=== PATIENT | male | born 1965 ===

== ENCOUNTER → 2020-01-05 08:42 | Outpatient (CLI) | payer MEDICARE, OTHER, MEDICAID, SELFPAY ==
--- NOTE | ~2020-01-05 | MR_ITS ---
EXAMINATION: MR cervical spine wo/w con EXAM DATE: 01/05/2020 10:05 INDICATION: Neck pain. Bilateral shoulder pain, symptoms for years. TECHNIQUE: Multi-sequential, multiplanar MR images of the cervical spine were obtained without contra st. Axial T2, axial T2 MERGE sequence. Sagittal T1, T2, T2 fat saturation images also obtained. Axi al T1 weighted sequence. Patient was then injected with 15 mL Multihance intravenous contrast and re imaged. Postcontrast axial and sagittal T1-weighted fat saturation sequences were obtained. There i s no prior study for comparison. FINDINGS: There is cervical fusion at C6-7. There is mild disc disease at C5-6 and C7-T1. The verteb ral bodies are aligned in the AP dimension. The spinal cord signal intensity and intrinsic morphology is normal. Cervicomedullary junction is normal in appearance. There are no suspicious marrow signal abnormalities. Paraspinal soft tissue is unremarkable. There are no areas of abnormal enhancement on the post contrast images. Level by level evaluation: C2-C3: Disc does not extend beyond the endplate margin. Uncovertebral joint arthropathy: Mild left. Facet joint arthropathy: Mild bilateral. Neural foraminal stenosis: No stenosis. Central canal stenosis: No stenosis. C3-C4: Disc does not extend beyond the endplate margin. Uncovertebral joint arthropathy: Mild to moderate bilateral. Facet joint arthropathy: Moderate left, mild to moderate right. Neural foraminal stenosis: Mild right. Central canal stenosis: No stenosis. C4-C5: Disc does not extend beyond the endplate margin. Uncovertebral joint arthropathy: Moderate right, mild to moderate left. Facet joint arthropathy: Moderate bilateral. Neural foraminal stenosis: Mild to moderate right, mild left. Central canal stenosis: No stenosis. C5-C6: There is a minimal diffuse disc bulge. Uncovertebral joint arthropathy: Mild to moderate bilateral. Facet joint arthropathy: Moderate bilateral. Neural foraminal stenosis: Mild right. Central canal stenosis: No stenosis. C6-C7: This level is fused. Uncovertebral joint arthropathy: Mild. Facet joint arthropathy: Mild to moderate. Neural foraminal stenosis: No stenosis. Central canal stenosis: No stenosis. C7-T1: There is a mild diffuse disc bulge. Uncovertebral joint arthropathy: Mild to moderate bilateral. Facet joint arthropathy: Mild to moderate bilateral. Neural foraminal stenosis: No stenosis. Central canal stenosis: Minimal. IMPRESSION: 1. C6-7 cervical fusion. 2. Mild to moderate cervical arthropathy. Reviewed, dictated and finalized at location B.
[2020-01-05 09:23] LABS: Estimated Glomerular Filt Rate > 60
== END ==
PROVIDERS: PCP Anesthesiology Pain Medicine; Visit Provider Nurse Practitioner Family
DX: M54.12 Radiculopathy, cervical region (principal); Z98.1 Arthrodesis status
CPT/HCPCS: 36415; 72156; A9577

== ENCOUNTER 2020-02-19 19:01 | Emergency (ER) | payer OTHER, MEDICAID, SELFPAY ==
--- NOTE | ~2020-02-19 | XR_ITS ---
EXAMINATION: XR chest 2V DATE: 02/19/2020 19:36 INDICATION: Chest pain and hypertension TECHNIQUE: PA and lateral views of the chest are obtained. COMPARISON: None available FINDINGS: The lungs are free of acute opacities. There is no pleural effusion or pneumothorax. The ca rdiomediastinal silhouette is normal. There are changes of fusion procedure in the cervical spine. [place] rgical clips are noted in the left neck. IMPRESSION: 1. No acute cardiopulmonary abnormality. Reviewed, dictated and finalized at location A.
--- NOTE | 2020-02-19 19:09 | ED.RECABL ---
HPI - Recheck/Abnormal Lab/Rx General Chief Complaint: Recheck/Abnormal Lab/Rx Stated Complaint: High BP Time Seen by Provider: 02/19/20 19:09 History of Present Illness HPI narrative: Intermittent chest pain and racing heart rate for the past 10 days. First noticed it after getting a steroid injection in his neck. Since that time he has had the symptoms multiple times. No inciting factor. associated with SOB. Teusday he was supposed tohave another injection, but his blood pressure was too high. He contacted his PCP and they had him restart the HCTZ which he was previously on. He continues to have elevated BP and intermittent smyptoms. Related Data Allergies Allergy/AdvReac Type Severity Reaction Status Date / Time No Known Allergies Allergy Verified 02/19/20 21:45 Review of Systems Review of Systems: All systems reviewed & are unremarkable except as noted in HPI and below Constitutional: Constitutional: Denies fever(s) Cardiovascular: Cardiovascular: Reports chest pain Respiratory: Respiratory: Denies cough and Reports dyspnea Gastrointestinal: Gastrointestinal: Denies abdominal pain and Denies nausea Neurologic: Reports dizziness Psychiatric: Psychiatric: Reports depression Endocrine: Endocrine: Denies polydipsia and Denies polyuria [facility] Past Medical History Medical History (Updated 02/19/20 @ 22:16 by Sukumar Shah MD) Depression Hypertension Social History Social History (Updated 02/19/20 @ 22:16 by Sukumar Shah MD) Smoking status: Never smoker Gender identity (if verbalized by the patient): Male Exam Const: General: healthy appearing, no acute distress and alert Orientation/consciousness: patient oriented x3 HENMT: Head: normal to inspection Neck: Neck: normal visual inspection and no lymphadenopathy Chest: Chest palpation & inspection: no tenderness Resp: Effort & Inspection: normal respiratory effort Auscultation: clear to auscultation bilaterally, no rales, no rhonchi and no wheezes Cardio: Jugular venous distension: no JVD Rate: regular rate Rhythm: regular rhythm Heart sounds: no murmurs GI: Inspection: non-distended GI Palp: Yes Soft to palpation and No Tenderness to palpation present (GI) Skin: General skin exam: normal color Neuro: General: patient oriented x3 and moves all extremities Speech: normal speech Extrem: General: no edema Psych: Appearance: well kempt Mental Status: mental status grossly normal Affect: Anxious affect present Attitude: cooperative Thought content: Yes Normal thought content present Course Vital Signs Vital signs: Vital Signs Temperature 36.5 C 02/19/20 19:13 Pulse Rate 80 02/19/20 19:13 Respiratory Rate 15 02/19/20 19:13 Blood Pressure 154/88 H 02/19/20 19:13 Pulse Oximetry 99 02/19/20 19:13 Temperature 36.5 C 02/19/20 19:13 Pulse Rate 68 02/19/20 21:59 Respiratory Rate 15 02/19/20 21:59 Blood Pressure 139/94 H 02/19/20 21:59 Pulse Oximetry 97 02/19/20 21:59 MDM - Recheck/Abnormal Lab/Rx MDM Narrative Medical decision making narrative: Normal EKG. Labs reassuring. No arrhythmia on telemetry. BP improved with metoprolol. I will start this as it will provide some rate control along with treating his blood pressure. No indication for admission or further testing at this time. Medical Records Attestation: I reviewed the patient's medical records. Lab Data Attestation: I reviewed the patient's lab results. Result diagrams: 02/19/20 19:30 02/19/20 19:30 Labs: Lab Results 02/19/20 02/19/20 02/19/20 Range/Units 19:30 19:30 19:30 WBC 8.9 (4.5-10.0) K/mm3 RBC 5.07 (4.6-6.20) M/mm3 Hgb 15.1 (14.0-18.0) g/dL Hct 45.0 (42.0-52.0) % MCV 88.8 (80-100) fl MCH 29.8 (26-34) pg MCHC 33.6 (32-36) g/dl RDW 12.4 (11.5-14.5) % Plt Count 304 (150-375) k/mm3 MPV 9.2 (7.4-10.4) fl Immature Gran % (Auto) 0.2
[2020-02-19 19:13] VITALS: BP 154/88; PULSE 80; RESP 15; TEMP 36.5; O2SAT 99
--- NOTE | 2020-02-19 19:18 | ECG_ITS ---
Measurements Intervals [place] Rate: 71 P: 48 [place]: 151 QRS: 45 QRSD: 90 T: 47 QT: 365 QTc: 398 Interpretive Statements SINUS RHYTHM BASELINE ARTIFACT- I, II, AVR NORMAL ECG Electronically Signed On 02-19-2020 19:23:45 CDT by Christiano Mcginnis D.O.
[2020-02-19] MEDS: ASPIRIN 81 MG CHEWABLE TABLET 324 MG PO (19:26)
[2020-02-19 19:37] LABS: Basophils Absolute Auto 0.1 K/mm3 (0.0-0.1); Basophils Percent Auto 0.7 % (0.2-1.2); Eosinophils Absolute Auto 0.1 K/mm3 (0-0.3); Eosinophils Percent Auto 1.6 % (0-4.4); Hemoglobin 15.1 g/dL (14.0-18.0); Immature Granulocyte Absolute 0.02 K/mm3 (0.00-0.031); Immature Granulocyte Percent A 0.2 % (0-0.5); Lymphocytes Absolute Auto 2.64 K/mm3 (0.9-3.2); Lymphocytes Percent Auto 29.7 % (18.3-44.2); Mean Corpuscular HGB Conc 33.6 g/dl (32-36); Mean Corpuscular Hemoglobin 29.8 pg (26-34); Mean Corpuscular Volume 88.8 fl (80-100); Mean Platelet Volume 9.2 fl (7.4-10.4); Monocytes Absolute Auto 1.2 K/mm3 (0.1-0.6); Monocytes Percent Auto 13.6 % (2.6-8.5); Neutrophils Absolute Auto 4.8 K/mm3 (1.3-6.7); Neutrophils Percent Auto 54.2 % (45.5-73.1); Platelet Count Result 304 k/mm3 (150-375); Red Blood Count 5.07 M/mm3 (4.6-6.20); Red Cell Distribution Width 12.4 % (11.5-14.5); White Blood Count 8.9 K/mm3 (4.5-10.0)
[2020-02-19 19:46] LABS: Prothrombin Time 12.7 Seconds (11.1-14.7)
[2020-02-19 19:49] LABS: Blood Urea Nitrogen 18 mg/dL (9-20); Calcium 8.6 mg/dL (8.4-10.2); Carbon Dioxide 34 mmol/L (22-30); Chloride 96 mmol/L (98-107); Estimated Glomerular Filt Rate > 60; Glucose 112 mg/dL (75-110); Potassium 3.3 mmol/L (3.4-5.0); Sodium 136 mmol/L (137-145)
[2020-02-19 20:01] LABS: Troponin I < 0.012 ng/mL (0.000-0.034)
[2020-02-19 20:05] VITALS: BP 150/87; PULSE 73; RESP 11; O2SAT 96
[2020-02-19] MEDS: METOPROLOL TARTRATE 25 MG TABLET PO (20:24)
[2020-02-19 20:45] VITALS: BP 154/89; PULSE 74; RESP 16; O2SAT 98
[2020-02-19 21:25] VITALS: BP 136/95; PULSE 68; RESP 12; O2SAT 97
[2020-02-19 21:59] VITALS: BP 139/94; PULSE 68; RESP 15; O2SAT 97
== END 2020-02-19 22:01 | disposition home or self-care (01) ==
PROVIDERS: Emergency Provider Emergency Medicine; PCP Anesthesiology Pain Medicine
DX: I10 Essential (primary) hypertension (principal); R07.9 Chest pain, unspecified
CPT/HCPCS: 36415; 71046; 80048; 84484; 85025; 85610; 85730; 93005; 99284; A9270

== ENCOUNTER → 2021-02-15 16:01 | Outpatient (CLI) | payer OTHER, MEDICARE, MEDICAID, SELFPAY ==
--- NOTE | ~2021-02-15 | MR_ITS ---
EXAMINATION: MR cervical spine wo con DATE: 02/15/2021 17:07 INDICATION: Neck pain. Cervical radiculopathy. TECHNIQUE: Magnetic resonance imaging (MRI) of the cervical spine was performed without intravenous c ontrast. Sequences included sagittal T2-weighted FSE, sagittal STIR FSE, sagittal T1-weighted FSE, ax ial MERGE, and axial T2-weighted FSE. COMPARISON: Cervical spine MRI 01/05/2020 FINDINGS: There is 7 degrees levocurvature of cervicothoracic spine. There are changes of anterior fu bill procedure at C6-C7 with discectomy, interbody bone graft, and anterior plate and screws. There i s mildly decreased disc height at C5-C6. The spinal cord signal intensity is normal. The following di sc levels are specifically discussed: C2-C3: The disc does not extend beyond the endplate margin. There is no uncovertebral joint osteoarth ritis. There is mild right and moderate left facet joint osteoarthritis. There is mild left neural fo raminal stenosis. There is no central canal stenosis. C3-C4: The disc does not extend beyond the endplate margin. There is moderate bilateral uncovertebral joint osteoarthritis. There is mild right and severe left facet joint osteoarthritis. There is mild bilateral neural foraminal stenosis. There is no central canal stenosis. C4-C5: There is a central protrusion. There is moderate uncovertebral joint osteoarthritis. There is mild right and moderate left facet joint osteoarthritis. There is mild bilateral neural foraminal ami nosis. There is mild central canal stenosis. C5-C6: The disc is bulging. There is mild bilateral uncovertebral joint osteoarthritis. There is natalie re right and mild left facet joint osteoarthritis. There is mild right neural foraminal stenosis. The re is mild central canal stenosis. C6-C7: There is no uncovertebral joint hypertrophy. There is no facet joint hypertrophy. There is no neural foraminal stenosis. There is no central canal stenosis. C7-T1: There is a central protrusion. There is mild bilateral uncovertebral joint osteoarthritis. The re is moderate right and mild left facet joint osteoarthritis. There is mild bilateral neural foramin al stenosis. There is mild central canal stenosis. IMPRESSION: 1. Mild cervical spondylosis, stable from 01/05/2020. 2. Anterior fusion procedure at C6-C7. Reviewed, dictated and finalized at location A.
== END ==
PROVIDERS: Visit Provider Nurse Practitioner Family
DX: M47.22 Other spondylosis with radiculopathy, cervical region (principal); Z98.1 Arthrodesis status
CPT/HCPCS: 72141

== ENCOUNTER 2024-01-02 07:52 | Outpatient (CLI) | payer OTHER, MEDICARE, MEDICAID, SELFPAY ==
--- NOTE | ~2024-01-02 | US_ITS ---
EXAMINATION: US soft tissue abdomen DATE: 01/02/2024 08:33 INDICATION: Umbilical hernia. Bloating. TECHNIQUE: Multiple grayscale and Doppler ultrasound images of the abdomen were obtained. COMPARISON: None FINDINGS: There is no abnormal mass or hernia in the patient's area of concern at the umbilicus. IMPRESSION: 1. No abnormal mass or hernia in the patient's area of concern at the umbilicus. Reviewed, dictated and finalized at location A. IMPRESSION: 1. No abnormal mass or hernia in the patient's area of concern at the umbilicus .
== END 2024-01-02 07:53 ==
PROVIDERS: PCP Registered Nurse; Visit Provider Registered Nurse
DX: K42.9 Umbilical hernia without obstruction or gangrene (principal)
CPT/HCPCS: 76705